=== PATIENT | female | born 1985 | race Asian ===

== ENCOUNTER 2018-05-30 16:20 | Outpatient (CLI) | payer OTHER ==
--- NOTE | 2018-05-30 19:04 | MRI Report ---
Procedure Date: 05/30/2018 Accession Number: [id number] / [id number] Procedure: MRI - Ankle RT W/O CPT Code: FULL RESULT: EXAM: RIGHT ANKLE/HINDFOOT MRI WITHOUT CONTRAST EXAM DATE: 05/30/2018 05:40 PM. CLINICAL HISTORY: INSTABILITY, UNSPECIFIED ANKLE. Stepped in pothole January 2018. Medial ankle pain. COMPARISON: None. TECHNIQUE: Multiplanar, multisequence T1-weighted and fluid-sensitive sequences of the ankle/hindfoot without contrast. Other: None. FINDINGS: Bones: No fractures or subluxations. No marrow edema. No bone lesions. Articular Cartilage: Unremarkable. Ligaments: Chronic tear anterior talofibular ligament. Intact distal anterior tibiofibular ligament. Probable intact calcaneofibular ligament. The deep and superficial deltoid and spring ligaments are intact. Anterior Tendons: The tibialis anterior, extensor hallucis longus, and extensor digitorum longus tendons are unremarkable. Medial Tendons: The tibialis posterior, flexor digitorum longus, and flexor hallucis longus tendons are unremarkable. Lateral Tendons: Mild tenosynovitis peroneus longus and peroneus brevis tendons. Negative for peroneus longus or peroneus brevis tendon tear. Achilles Tendon: The Achilles tendon is unremarkable. Musculature: No edema or fatty atrophy. Other: Small fluid anterior ankle joint. The contents of the sinus tarsi and tarsal tunnel are unremarkable. No plantar fasciitis. The subcutaneous tissues are unremarkable. IMPRESSION: 1. Chronic tear anterior talofibular ligament. 2. Mild peroneal tenosynovitis. RADIA MUSCULOSKELETAL RADIOLOGY SECTION
== END 2018-05-30 16:21 | disposition home or self-care (01) ==
LOC: DI 16:20
PROVIDERS: ATTEND Family Medicine
DX: S93.491A Sprain of other ligament of right ankle, initial encounter (principal); M65.871 Other synovitis and tenosynovitis, right ankle and foot